=== PATIENT | female | born 1955 | race Caucasian/White ===

== ENCOUNTER → 2017-01-27 | Outpatient (CLI) | payer BC ==
[~2017-01-27] MED LIST: ACET-1256 PO; CHOL100027 PO; CLTP PO; ESCI10TA17 PO; SNG10 PO
--- NOTE | 2017-01-27 13:58 | MAMMOGRAPHY REPORT ---
BILATERAL DIGITAL SCREENING MAMMOGRAM TOMOSYNTHESIS WITH CAD: 01/27/2017 CLINICAL HISTORY: Routine screening. Patient has no complaints. TECHNIQUE: Breast tomosynthesis in addition to standard 2D mammography was performed. Current study was also evaluated with a Computer Aided Detection (CAD) system. COMPARISON: Comparison is made to exams dated: 01/26/2016 mammogram, 01/23/2015 mammogram, 12/03/2012 briana mogram, 06/01/2012 mammogram, 05/29/2012 mammogram, and 05/25/2011 mammogram - [facility] enter. BREAST COMPOSITION: The tissue of both breasts is heterogeneously dense, which may obscure small mas ses. FINDINGS: No suspicious masses, calcifications, or areas of architectural distortion are noted in ei ther breast. There has been no significant interval change compared to prior exams. Scattered bilater al benign-appearing calcifications are not significantly changed. There are stable postsurgical ortiz ges in the left lateral breast from prior lumpectomy. IMPRESSION: ACR BI-RADS CATEGORY 2: BENIGN There is no mammographic evidence of malignancy. A 1 year screening mammogram is recommended. The pa tient will receive written notification of the results. Approximately 10% of breast cancers are not detected with mammography. A negative mammographic report should not delay biopsy if a clinically suggestive mass is present. Anne Erwin M.D. /:01/27/2017 12:11:42 Manager Eligibility: Fiona MENDENHALL(Joaquin)(Cecilia)(BD), [facility] letter sent: Normal 1/2 BI-RADS Code: ACR BI-RADS Category 2: Benign
== END | disposition home or self-care (01) ==
LOC: C.MAMM 09:55
PROVIDERS: ATTEND Family Medicine
DX: Z12.31 Encounter for screening mammogram for malignant neoplasm of breast (principal)

== ENCOUNTER → 2017-08-25 | Outpatient (CLI) | payer OTHER | END | disposition home or self-care (01) | LOC: C.LABSPEC 17:11 | PROVIDERS: ATTEND Nurse Practitioner Family | DX: R39.9 Unspecified symptoms and signs involving the genitourinary system (principal) ==

== ENCOUNTER → 2017-10-25 | Outpatient (CLI) | payer OTHER ==
--- NOTE | 2017-10-25 11:54 | DIAGNOSTIC IMAGING REPORT ---
SINUSES-MAXILLOFACIAL W/O HISTORY: 62 years-old Female ATYPICAL FACE PAIN, LEFT FACIAL SWELLING chronic left-sided facial pain and swelling COMPARISON: CT maxillofacial study 11/24/2014 TECHNIQUE: Multiple axial CT images of the maxillofacial structures were obtained without the use of IV contrast. A dose lowering technique was used consistent with the principals of PRIMO. FINDINGS: Imaged intracranial structures are unremarkable without acute process identified. Mastoid air cells and middle ear cavities are clear. Minimal mucosal thickening about the left sphenoid sinus. The right sphenoid sinus is clear. The bilateral maxillary sinuses and frontal sinuses are clear. There is hypoplasia of the right frontal sinus. Mild mucosal thickening of the anterior ethmoid air cells bilaterally. There is minimal leftward bowing and spurring of the nasal septum. There is a moderate-sized right jacinda bullosa. No Hailee cell identified. Concepción domenico appears normal. There is patency of the bilateral maxillary ostiomeatal units, frontoethmoidal and sphenoethmoidal recesses. Small periapical lucency is noted involving the left maxillary second molar as seen on image 97 series 3. No facial bone fracture. Temporomandibular joints are located. Degenerative changes of the imaged cervical spine. Note is made of disconjugate gaze. Soft tissues are within normal limits. No drainable fluid collection or soft tissue mass identified. IMPRESSION: 1. Mild paranasal sinus disease as above with patency of the sinus outflow tracts. 2. Moderate sized right jacinda bullosa with mild leftward bowing and spurring of the nasal septum. The above report was generated using voice recognition software. It may contain grammatical, syntax or spelling errors. Electronically signed by: Ciaran Tillman M.D. 10/25/2017 11:52 AM Dictated Date/Time: 10/25/2017 11:45 AM
== END | disposition home or self-care (01) ==
LOC: C.CTS 11:02
PROVIDERS: ATTEND Family Medicine
DX: R22.0 Localized swelling, mass and lump, head (principal); G50.1 Atypical facial pain

== ENCOUNTER → 2018-01-11 | Outpatient (CLI) | payer OTHER ==
--- NOTE | 2018-01-11 11:15 | DIAGNOSTIC IMAGING REPORT ---
R KNEE 4 OR MORE CLINICAL HISTORY: RIGHT KNEE PAIN pain COMPARISON: None. DISCUSSION: Moderate degenerative change all major joint compartments. No evidence for fracture or dislocation. No significant joint effusion. There is no evidence for soft tissue swelling. IMPRESSION: Moderate degenerative change all major joint compartments. No acute process. The above report was generated using voice recognition software. It may contain grammatical, syntax or spelling errors. Electronically signed by: Elbert Bergman M.D. 01/11/2018 11:13 AM Dictated Date/Time: 01/11/2018 11:13 AM
== END | disposition home or self-care (01) ==
LOC: C.RDSM 11:00
PROVIDERS: ATTEND Family Medicine
DX: M25.561 Pain in right knee (principal)

== ENCOUNTER → 2018-01-11 | Outpatient (CLI) | payer OTHER ==
[2018-01-11 12:23] LABS: BLOOD UREA NITROGEN 16 mg/dl (7-18); CREATININE 0.71 mg/dl (0.60-1.20)
== END | disposition home or self-care (01) ==
LOC: C.LAB 10:24
PROVIDERS: ATTEND Nurse Practitioner Family
DX: G50.0 Trigeminal neuralgia (principal)

== ENCOUNTER → 2018-01-16 | Outpatient (CLI) | payer OTHER ==
[~2018-01-16] MED LIST changes: +GADAVIST IV PRN
--- NOTE | 2018-01-16 11:54 | DIAGNOSTIC IMAGING REPORT ---
MRI OF THE BRAIN WITHOUT AND WITH IV CONTRAST CLINICAL HISTORY: G50.0 Trigeminal [id number] Eye muscle twitches COMPARISON STUDY: 01/01/2013 TECHNIQUE: MRI of the brain was performed from the vertex to the skull base utilizing various T1 and T2 weighted sequences. Following the IV administration of 7.5 mL of Gadavist contrast, additional enhanced images were obtained. FINDINGS: Sagittal T1, axial diffusion, proton density and T2 weighted axial, coronal FLAIR, and pre and post axial T1-weighted images were acquired. These were supplemented with post gadolinium coronal T1 weighted images. No intra or extra-axial mass lesions are visualized. Axial diffusion-weighted images reveal no evidence of acute or subacute infarction. There is no evidence of ventricular dilatation. Proton density T2-weighted and FLAIR images reveal stable minor foci of increased FLAIR signal within the white matter. There are no abnormal flow voids. No pathologically enhancing lesions are visualized. No trigeminal lesions are identified. IMPRESSION: 1. No acute intracranial findings 2. No evidence of acute or subacute infarction 3. No evidence of intracranial mass Electronically signed by: Gregory Chatman M.D. 01/16/2018 11:53 AM Dictated Date/Time: 01/16/2018 11:49 AM
== END | disposition home or self-care (01) ==
LOC: C.MRI 10:00
PROVIDERS: ATTEND Nurse Practitioner Family
DX: G50.0 Trigeminal neuralgia (principal); R25.3 Fasciculation

== ENCOUNTER → 2018-01-30 | Outpatient (CLI) | payer OTHER ==
[~2018-01-30] MED LIST changes: -GADAVIST IV PRN
--- NOTE | 2018-01-31 13:51 | MAMMOGRAPHY REPORT ---
BILATERAL DIGITAL SCREENING MAMMOGRAM TOMOSYNTHESIS WITH CAD: 01/30/2018 CLINICAL HISTORY: Asymptomatic. Personal history of breast cancer. Patient also reported a left later al breast tenderness during the screening exam. TECHNIQUE: The study was acquired using full field digital technology and interpreted from soft copy. Breast tomosynthesis in addition to standard 2D mammography was performed. Current study was also ev aluated with a Computer Aided Detection (CAD) system. COMPARISON: Comparison is made to exams dated: 01/27/2017 mammogram, 01/26/2016 mammogram, 01/23/2015 briana mogram, 05/29/2012 mammogram, 05/25/2011 mammogram, and 05/18/2010 mammogram - [facility] enter. BREAST COMPOSITION: The tissue of both breasts is heterogeneously dense, which may obscure small mass es. FINDINGS: There is a 2 cm focal asymmetry in the upper inner posterior right breast which could repre sent normal overlapping tissue although additional spot compression tomosynthesis views and possible ultrasound are recommended for further characterization. At the time of diagnostic workup in the rig ht breast, targeted left breast ultrasound is recommended for the reported left lateral tenderness, a lthough no new suspicious left mammographic abnormality is seen. There are stable postsurgical changes in the left breast, with expected architectural distortion in t he upper outer middle to anterior breast. Scattered benign-appearing rim calcifications. No other brenner spicious mass, architectural distortion or cluster of microcalcifications is seen. IMPRESSION: ACR BI-RADS CATEGORY 0: INCOMPLETE EVALUATION: NEED ADDITIONAL IMAGING EVALUATION The 2 cm focal asymmetry in the upper inner right breast and left lateral breast tenderness need bubba tional evaluation. The patient will be called to schedule an appointment. Some breast cancers are not detected with mammography. A negative mammographic report should not kody y biopsy if a clinically suggestive mass is present. Yohana Berrios M.D. ay/:01/30/2018 21:50:10 Locomotive Engineer Electric: RT Sofya(Joaquin)(M), [facility] letter sent: Addl Imaging 0 BI-RADS Code: ACR BI-RADS Category 0: Incomplete Evaluation: Need Additional Imaging Evaluation
== END | disposition home or self-care (01) ==
LOC: C.MAMM 10:09
PROVIDERS: ATTEND Family Medicine
DX: Z12.31 Encounter for screening mammogram for malignant neoplasm of breast (principal); N64.89 Other specified disorders of breast; N64.4 Mastodynia; Z85.3 Personal history of malignant neoplasm of breast